=== PATIENT | female | born 1935 | race Caucasian/White ===

== ENCOUNTER 2022-07-25 09:27 | Inpatient (IN) ==
[2022-07-23 13:12] LABS: Calcium 8.7 MG/DL (8.5-10.1); Potassium 4.5 MMOL/L (3.5-5.1)
[2022-07-23 13:19] LABS: Basophils # 0.1 10*3/uL (0.0-0.2); Basophils % 1.1 % (0.0-0.8); Eosinophils # 0.3 10*3/uL (0.0-0.87); Eosinophils % 4.7 % (0.00-10.9); Hematocrit 37.8 VOL% (35.7-47.0); Hemoglobin 11.1 GM/DL (12.0-16.0); Immature Granulocytes % 0.3 %; Immature Granulocytes Absolute 0.02 #; Lymphocytes # 1.3 10*3/uL (1.4-4.0); Lymphocytes % 20.1 % (21.3-54.2); Mean Corpuscular HGB Conc 29.4 GM/DL (32-36); Mean Corpuscular Volume 83.1 FL (87-102); Mean Platelet Volume 10.8 FL (9.6-12.0); Monocytes # 0.9 10*3/uL (0.11-0.8); Monocytes % 13.6 % (1.7-12.7); Neutrophils % 60.2 % (38.7-73.9); Platelet Count 496 T/CUMM (130-400); Red Blood Count 4.55 MC/CUMM (3.8-5.5); Red Cell Distribution Width 16.5 % (9.3-17.3); White Blood Count 6.6 T/CUMM (4-12)
[~2022-07-25 09:27] MED LIST: ALVIMOPAN 12 MG CAPSULE PO ONE; ERTAPENEM 1,000 MG in SODIUM CHLORIDE 0.9% 100 ML IV ONE
[2022-07-25] MEDS ORDERED: DIAZEPAM 5 MG TABLET PO ONE (09:42)
[2022-07-25] MEDS ORDERED: ACETAMINOPHEN 500 MG TABLET PO ONE (09:42)
[2022-07-25] MEDS ORDERED: FAMOTIDINE 20 MG TABLET PO ONE (09:42)
[2022-07-25] MEDS ORDERED: GABAPENTIN 400 MG CAPSULE PO ONE (09:42)
[2022-07-25] MEDS ORDERED: LACTATED RINGERS 1,000 ML IV SCH (10:00)
[2022-07-25] MEDS ORDERED: TISSUE ADHESIVE 1 EACH APPLICATOR TOP ONE (10:57)
[2022-07-25] MEDS ORDERED: fentaNYL 100 MCG/2 ML VIAL ONE (11:12)
[2022-07-25] MEDS ORDERED: DEXAMETHASONE 4 MG/1 ML VIAL ONE (11:16)
[2022-07-25] MEDS ORDERED: LIDOCAINE 1% 5 ML VIAL ONE (11:16)
[2022-07-25] MEDS ORDERED: BUPIVACAINE MPF 0.25% 30 ML VIAL ONE (11:16)
[2022-07-25] MEDS ORDERED: ePHEDrine 50 MG/ML VIAL ONE (12:03)
[2022-07-25] MEDS ORDERED: ROCURONIUM 50 MG/5 ML VIAL IV ONE (12:13)
[2022-07-25] MEDS ORDERED: propofoL 200 MG/20 ML VIAL IV ONE (12:13)
[2022-07-25] MEDS ORDERED: LIDOCAINE 2% 5 ML VIAL ONE (12:13)
[2022-07-25] MEDS ORDERED: SEVOFLURANE 1 UNIT/15 MINUTE INH ONE (12:13)
[2022-07-25] MEDS ORDERED: PHENYLEPHRINE 1 MG/10 ML SYRINGE IV ONE (13:15)
[2022-07-25] MEDS ORDERED: INDOCYANINE GREEN 25 MG VIAL IV ONE (13:31)
[2022-07-25] MEDS ORDERED: SUGAMMADEX 200 MG/2 ML VIAL IV ONE (14:00)
[2022-07-25] MEDS ORDERED: traMADol 50 MG TABLET PO PRN (15:45)
[2022-07-25] MEDS ORDERED: HYDROmorphone 1 MG/1 ML SYRINGE IV PRN (15:45)
[2022-07-25] MEDS ORDERED: ONDANSETRON 4 MG/2 ML VIAL IV PRN (15:45)
[2022-07-25] MEDS: LACTATED RINGERS 1,000 ML IV SCH (16:30)
[2022-07-25 17:18] LABS: Calcium 8.4 MG/DL (8.5-10.1); Osmolality,Calculated 283.4 MOS/KG (273-304); Potassium 3.9 MMOL/L (3.5-5.1)
[2022-07-25 17:26] LABS: Basophils # 0.1 10*3/uL (0.0-0.2); Basophils % 0.4 % (0.0-0.8); Eosinophils % 0.1 % (0.00-10.9); Hematocrit 36.8 VOL% (35.7-47.0); Hemoglobin 11.1 GM/DL (12.0-16.0); Immature Granulocytes % 0.6 %; Immature Granulocytes Absolute 0.08 #; Lymphocytes # 0.7 10*3/uL (1.4-4.0); Lymphocytes % 4.7 % (21.3-54.2); Mean Corpuscular HGB Conc 30.2 GM/DL (32-36); Mean Corpuscular Volume 81.2 FL (87-102); Mean Platelet Volume 10.8 FL (9.6-12.0); Monocytes # 0.4 10*3/uL (0.11-0.8); Monocytes % 2.7 % (1.7-12.7); Neutrophils % 91.5 % (38.7-73.9); Platelet Count 509 T/CUMM (130-400); Red Blood Count 4.53 MC/CUMM (3.8-5.5); Red Cell Distribution Width 16.6 % (9.3-17.3); White Blood Count 13.9 T/CUMM (4-12)
[2022-07-25 17:32] LABS: Lymphocytes 7 % (20-55); Platelet Estimate Increased; Total Cells Counted 100
[2022-07-25 17:33] LABS: Hypochromia 1+
[2022-07-25] MEDS: PREGABALIN 50 MG CAPSULE PO SCH ×2 (18:09→20:03)
[2022-07-25] MEDS: rOPINIRole 0.25 MG TABLET PO SCH ×2 (18:09→20:03)
[2022-07-25] MEDS: KETOROLAC 15 MG/1 ML VIAL IV SCH ×2 (18:13→22:23)
[2022-07-25] MEDS: ALVIMOPAN 12 MG CAPSULE PO SCH (20:45)
[2022-07-25] MEDS ORDERED: rOPINIRole 0.25 MG TABLET PO SCH (21:00)
[2022-07-26] MEDS: LACTATED RINGERS 1,000 ML IV SCH (02:59)
[2022-07-26] MEDS: KETOROLAC 15 MG/1 ML VIAL IV SCH ×2 (04:11→10:29)
[2022-07-26 05:24] LABS: Basophils % 0.3 % (0.0-0.8); Eosinophils % 0.1 % (0.00-10.9); Hematocrit 31.9 VOL% (35.7-47.0); Hemoglobin 9.6 GM/DL (12.0-16.0); Immature Granulocytes % 0.2 %; Immature Granulocytes Absolute 0.03 #; Lymphocytes # 1.6 10*3/uL (1.4-4.0); Lymphocytes % 13.2 % (21.3-54.2); Mean Corpuscular HGB Conc 30.1 GM/DL (32-36); Mean Corpuscular Volume 80.4 FL (87-102); Mean Platelet Volume 10.5 FL (9.6-12.0); Monocytes # 1.6 10*3/uL (0.11-0.8); Monocytes % 12.9 % (1.7-12.7); Neutrophils % 73.3 % (38.7-73.9); Platelet Count 450 T/CUMM (130-400); Red Blood Count 3.97 MC/CUMM (3.8-5.5); Red Cell Distribution Width 16.8 % (9.3-17.3); White Blood Count 12.5 T/CUMM (4-12)
[2022-07-26 05:51] LABS: Calcium 8.5 MG/DL (8.5-10.1); Osmolality,Calculated 281.4 MOS/KG (273-304); Potassium 4.1 MMOL/L (3.5-5.1)
[2022-07-26 07:30] VITALS: BP 120/58
[2022-07-26] MEDS: ALVIMOPAN 12 MG CAPSULE PO SCH (08:50)
[2022-07-26] MEDS: PREGABALIN 50 MG CAPSULE PO SCH (08:50)
[2022-07-26] MEDS: rOPINIRole 0.25 MG TABLET PO SCH (08:50)
[2022-07-26] MEDS ORDERED: MIRABEGRON 50 MG PO SCH (09:00)
[2022-07-26] MEDS ORDERED: RALOXIFENE 60 MG TABLET PO SCH (09:00)
[2022-07-26] MEDS ORDERED: CHOLECALCIFEROL 1,000 UNIT TABLET PO SCH (09:00)
[2022-07-26] MEDS ORDERED: OMEGA 3 ACID ETHYL ESTERS 1 GM CAPSULE PO SCH (09:00)
[2022-07-26] MEDS ORDERED: ENOXAPARIN 40 MG/0.4 ML SYRINGE SUBCUT SCH (09:00)
[2022-07-26] MEDS ORDERED: COENZYME Q10 100 MG CAPSULE PO SCH (09:00)
[2022-07-26] MEDS ORDERED: PANTOPRAZOLE 40 MG TABLET PO SCH (09:00)
[2022-07-26] MEDS ORDERED: ATORVASTATIN 10 MG TABLET PO SCH (21:00)
[2022-08-01] MEDS ORDERED: ERGOCALCIFEROL 50,000 UNIT CAPSULE PO SCH (09:00)
== END 2022-07-26 10:00 | disposition home or self-care (01) | DRG 329 ==
LOC: N.SDSINP 09:27 → N.OR 09:27 → N.SDSINP 09:30 → N.3E 15:44
PROVIDERS: ADMIT Surgery; ATTEND Surgery

== ENCOUNTER 2022-07-26 23:18 | Inpatient (IN) ==
[2022-07-26] MEDS ORDERED: ONDANSETRON 4 MG/2 ML VIAL IV PRN (23:38)
[2022-07-26] MEDS: DEXTROSE 5% NACL 0.45% 1,000 ML IV SCH (23:59)
[2022-07-27] MEDS ORDERED: INFLUENZA VIRUS VACCINE 0.5 ML SYRINGE IM ONE (02:00)
[2022-07-27] MEDS: MORPHINE 2 MG/1 ML SYRINGE IV PRN ×5 (03:09→21:23)
[2022-07-27 06:47] LABS: Basophils % 0.4 % (0.0-0.8); Eosinophils # 0.1 10*3/uL (0.0-0.87); Eosinophils % 0.9 % (0.00-10.9); Hemoglobin 7.8 GM/DL (12.0-16.0); Immature Granulocytes % 0.4 %; Immature Granulocytes Absolute 0.04 #; Lymphocytes # 1.6 10*3/uL (1.4-4.0); Mean Corpuscular HGB Conc 28.9 GM/DL (32-36); Mean Corpuscular Volume 82.6 FL (87-102); Mean Platelet Volume 10.6 FL (9.6-12.0); Monocytes # 1.4 10*3/uL (0.11-0.8); Monocytes % 13.2 % (1.7-12.7); Neutrophils % 70.1 % (38.7-73.9); Platelet Count 396 T/CUMM (130-400); Red Blood Count 3.27 MC/CUMM (3.8-5.5); Red Cell Distribution Width 16.7 % (9.3-17.3); White Blood Count 10.7 T/CUMM (4-12)
[2022-07-27 06:59] LABS: PT Patient Result 11.5 SECS (10.1-12.1); Partial Thromboplastin Time 32.8 SECS (23.7-32.9)
[2022-07-27 07:16] LABS: Alanine Aminotransferase 17 U/L (13-56); Albumin 2.1 G/DL (3.4-5.0); Alkaline Phosphatase 73 U/L (45-117); Aspartate Amino Transferase 12 U/L (0-37); Bilirubin,Total < 0.39 MG/DL (0.20-1.00); Blood Urea Nitrogen 20 MG/DL (7-18); Calcium 8.4 MG/DL (8.5-10.1); Carbon Dioxide 29 MMOL/L (21-32); Chloride 104 MMOL/L (98-107); Glucose 132 MG/DL (74-106); Osmolality,Calculated 277.8 MOS/KG (273-304); Potassium 4.1 MMOL/L (3.5-5.1); Sodium 137 MMOL/L (136-145); Total Protein 5.2 G/DL (6.4-8.2)
[2022-07-27] MEDS: DEXTROSE 5% NACL 0.45% 1,000 ML IV SCH ×2 (07:29→15:49)
[2022-07-27] MEDS: PANTOPRAZOLE 40 MG VIAL IV SCH (08:29)
[2022-07-28] MEDS: DEXTROSE 5% NACL 0.45% 1,000 ML IV SCH ×3 (01:14→16:19)
[2022-07-28] MEDS: MORPHINE 2 MG/1 ML SYRINGE IV PRN ×4 (03:16→21:00)
[2022-07-28] MEDS: PANTOPRAZOLE 40 MG VIAL IV SCH (08:13)
[2022-07-29] MEDS: DEXTROSE 5% NACL 0.45% 1,000 ML IV SCH ×3 (01:07→17:16)
[2022-07-29] MEDS: MORPHINE 2 MG/1 ML SYRINGE IV PRN ×2 (05:15→08:54)
[2022-07-29] MEDS: PANTOPRAZOLE 40 MG VIAL IV SCH (08:53)
[2022-07-29] MEDS ORDERED: traMADol 50 MG TABLET PO PRN (09:11)
[2022-07-29] MEDS: ENOXAPARIN 40 MG/0.4 ML SYRINGE SUBCUT SCH (12:05)
[2022-07-29] MEDS ORDERED: TUBERCULIN SKIN TEST 0.1 ML SYRINGE INTRADERM ONE (13:00)
[2022-07-29] MEDS: rOPINIRole 0.25 MG TABLET PO SCH ×2 (14:27→20:49)
[2022-07-29] MEDS: PREGABALIN 50 MG CAPSULE PO SCH (20:49)
[2022-07-30] MEDS ORDERED: RALOXIFENE 60 MG TABLET PO SCH (09:00)
[2022-07-30] MEDS ORDERED: ATORVASTATIN 10 MG TABLET PO SCH (09:00)
[2022-07-30] MEDS ORDERED: MIRABEGRON 50 MG PO SCH (09:00)
[2022-07-30] MEDS: PREGABALIN 50 MG CAPSULE PO SCH (10:26)
[2022-07-30] MEDS: ENOXAPARIN 40 MG/0.4 ML SYRINGE SUBCUT SCH (10:31)
[2022-07-30] MEDS: PANTOPRAZOLE 40 MG VIAL IV SCH (11:09)
[2022-07-30 11:52] VITALS: BP 164/77
== END 2022-07-30 12:45 | disposition home health service (06) | DRG 921 ==
LOC: EDUNIT# → EDBD → N.ED 23:18 → N.EDINP 23:18 → N.SDSINP 07-27 00:29 → N.3E 07-27 00:29
PROVIDERS: ADMIT Surgery; ATTEND Surgery